=== PATIENT | female | born 1930 | race Caucasian/White ===

== ENCOUNTER 2016-08-16 11:51 | Day surgery (SDC) | payer MEDICARE ==
[~2016-08-16] VITALS: Ht 147.3 cm; Wt 64.0 kg
[2016-08-16] MEDS: LEVOTHYROXINE 0.137 MG TAB (137MCG) PO SCH (06:00)
[2016-08-16] MEDS: MAXZIDE 75/50 TABLET PO SCH (09:00)
[2016-08-16] MEDS: buPROPion **XL** TABLET 150MG (WELLBUTRIN XL) PO SCH (09:00)
[~2016-08-16 11:51] MED LIST: ASPI1TAB; ATRO1OPD OD; BRIM0.2S OD; BUPR150T3 PO; CATA0.1D TD; CLON0.5T PO; CLOTCRE3 TOP; DORZ2SOL5 OD; ERYTOIN8 OD; FLUO1OPD OD; LABE20TAB PO; LEVO137T2 PO; LIDOCAINE 2% W/EPIN INJ 20ML **PRES FREE As Ordered ONE; LIDOCAINE 4% INJ 5 ML AMP OU ONE; MAXITROL OPHTH OINT 3.5 GM As Ordered ONE; MAXITROL OPHTH OINT 3.5 GM OD ONE; MAXITROL OPHTH SUSP 5 ML As Ordered ONE; MECL12.575 PO; NORC5TAB PO; POVIDONE-IODINE 5% OPHTH PREP SOL 30ML As Ordered ONE; PRAM0.252 PO; TERA5CA PO; TRIA37.5 PO; XALA0.002 OD
[2016-08-16] MEDS ORDERED: LR 1,000 ML IV SCH ×2 (12:15→15:45)
[2016-08-16] MEDS ORDERED: fentaNYL 100 MCG/2 ML INJECTION (J3010) As Ordered ONE (13:33)
[2016-08-16] MEDS ORDERED: MIDAZOLAM INJ 2 MG/2 ML VIAL (J2250) As Ordered ONE (13:34)
[2016-08-16] MEDS ORDERED: MAXITROL OPHTH SUSP 5 ML XX ONE (14:04)
[2016-08-16] MEDS ORDERED: MAXITROL OPHTH OINT 3.5 GM XX ONE (14:04)
[2016-08-16] MEDS ORDERED: PROPOFOL 200 MG/20 ML VIAL As Ordered ONE (14:20)
[2016-08-16] MEDS ORDERED: ONDANSETRON 4MG/2ML VIAL (J2405) As Ordered ONE (14:21)
[2016-08-16] MEDS ORDERED: NEOSTIGMINE 1MG/ML 5 ML SYRINGE (J2710) As Ordered ONE (14:21)
[2016-08-16] MEDS ORDERED: GLYCOPYRROLATE INJ 0.2 MG/ML 2 ML VIAL As Ordered ONE (14:21)
[2016-08-16] MEDS ORDERED: LIDOCAINE 2% W/EPIN INJ 20ML **PRES FREE XX ONE (14:52)
[2016-08-16] MEDS ORDERED: ONDANSETRON 4MG/2ML VIAL (J2405) IV PRN (15:45)
[2016-08-16] MEDS ORDERED: NORCO, ANEXSIA 5/325MG TABLET (HYDROcodone/ACETAMINOPHEN) As Ordered ONE (16:16)
[2016-08-16] MEDS ORDERED: LABETALOL HCL 100 MG/20 ML VIAL As Ordered ONE (16:27)
[2016-08-16] MEDS ORDERED: NORCO, ANEXSIA 5/325MG TABLET (HYDROcodone/ACETAMINOPHEN) PO PRN ×2 (16:30→20:00)
[2016-08-16] MEDS: LABETALOL HCL 100 MG/20 ML VIAL IV SCH ×4 (16:34→17:05)
[2016-08-16] MEDS: fentaNYL 100 MCG/2 ML INJECTION (J3010) IV PRN ×2 (16:43→16:55)
[2016-08-16] MEDS: **hydrALAZINE** 10 MG TAB PO SCH (18:00)
--- NOTE | 2016-08-16 19:35 | CR ---
DATE OF CONSULTATION: 08/16/2016 REASON FOR CONSULTATION: Hypertension. PRIMARY CARE PROVIDER: Dr. Garcia HISTORY OF PRESENT ILLNESS: The patient is an 86-year-old female who presented to the hospital for right eye enucleation done by Dr. Coreas. Preoperative clearance was done by Dr. Garcia, outpatient. Postoperatively however, patient started to have hypertension, systolic blood pressure in the 180's. Hospitalist was consulted for hypertension. Upon my exam, patient denies any headaches, denies any chest pain, shortness of breath, denies any nausea or vomiting. Denies any weakness. Was complaining only of dizziness upon standing which per family is her baseline. REVIEW OF SYSTEMS: A 12-point review of systems was obtained, all which was negative, except for those mentioned above. PAST MEDICAL HISTORY: Significant for: 1. Hypertension. 2. Arthritis. 3. Hypothyroidism. 4. Depression. 5. Chronic kidney disease. 6. History of Meniere's disease. PAST SURGICAL HISTORY: Reviewed. ALLERGIES: PATIENT HAS MULTI-DRUG ALLERGIES INCLUDING AMLODIPINE, CARBIDOPA, CITALOPRAM, ENALAPRIL, FLUCONAZOLE, FLUOXETINE, GABAPENTIN, NSAIDs, NAPROXEN, PREGABALIN, ROPINIROLE, TRAMADOL, ROTIGOTINE. FAMILY HISTORY: Noncontributory. SOCIAL HISTORY: Patient lives at home. LABORATORY FINDINGS: None available to review at this time. PHYSICAL EXAMINATION: VITAL SIGNS: Pulse 63, respiratory rate 16, blood pressure 184/77, pulse oximetry 98% on room air. GENERAL: Patient seen and examined. She is awake, alert, and oriented times three. Status-post eye enucleation . Dressing clean, dry, and intact. CARDIAC: Bradycardiac. No murmurs appreciated. ABDOMEN: Soft, nontender, nondistended. EXTREMITIES: Trace edema bilaterally. SKIN: No obvious lesions or rashes. ASSESSMENT AND PLAN: 1. Hypertension. Patient has history of hypertension. Will continue patient's home medications. We will add Hydralazine for systolic blood pressure greater than 160, 10 mg every 6 hours as needed. Continue patient's home Labetalol, Catapres, Hytrin, Maxzide. 2. History of chronic kidney disease. We will check patient's lab in the morning. 3. Deep venous vein (DVT) prophylaxis. Sequential compression devices (SCDs) while in bed.
[2016-08-16 19:45] VITALS: BP 175/55
[2016-08-16] MEDS ORDERED: MECLIZINE 12.5 MG TAB PO PRN (20:00)
[2016-08-16 20:45] VITALS: BP 145/62
[2016-08-16] MEDS ORDERED: PRAMIPEXOLE 0.25 MG TAB PO SCH (21:00)
[2016-08-16] MEDS ORDERED: LABETALOL 200 MG TAB PO SCH (21:00)
[2016-08-16] MEDS: CEPHALEXIN 500 MG CAP PO SCH (21:31)
[2016-08-16] MEDS: LABETALOL 200 MG TAB PO SCH (21:31)
[2016-08-16] MEDS: NORCO, ANEXSIA 5/325MG TABLET (HYDROcodone/ACETAMINOPHEN) PO PRN (21:38)
[2016-08-16 21:45] VITALS: BP 150/65
[2016-08-16 22:45] VITALS: BP 155/60
[2016-08-16 23:45] VITALS: BP 150/67
[2016-08-17 00:45] VITALS: BP 155/58
[2016-08-17] MEDS: NORCO, ANEXSIA 5/325MG TABLET (HYDROcodone/ACETAMINOPHEN) PO PRN (03:56)
[2016-08-17 04:00] VITALS: BP 138/62
[2016-08-17 06:00] VITALS: BP 128/58
[2016-08-17] MEDS: **hydrALAZINE** 10 MG TAB PO SCH ×2 (06:00)
[2016-08-17] MEDS: LEVOTHYROXINE 0.137 MG TAB (137MCG) PO SCH (06:17)
[2016-08-17 06:49] LABS: BASO % 0.5 % (0.0-1.0); EOS # 0.2 K/mm3 (0.0-0.50); LARGE UNSTAINED CELL # 0.2 K/mm3 (0.0-0.4); LARGE UNSTAINED CELL % 2.6 % (0.0-4.0); LYMPH # 1.5 K/mm3 (1.5-4.5); LYMPH % 23.1 % (24.0-44.0); MEAN CORPUSCULAR HEMOGLOBIN 34.5 pg (27.0-33.0); MEAN CORPUSCULAR HGB CONC 34.5 g/dl (32.0-36.5); MONO # 0.4 K/mm3 (0.0-0.8); MONO % 5.6 % (0.0-5.0); NEUTROPHILS # 4.2 K/mm3 (1.8-7.7); NEUTROPHILS % 65.2 % (36.0-66.0); PLATELET COUNT, AUTOMATED 252 k/mm3 (150-450); RED CELL DISTRIBUTION WIDTH 13.2 % (11.5-14.5); WHITE BLOOD COUNT 6.4 K/mm3 (4.0-10.0)
[2016-08-17 07:20] LABS: ALBUMIN/GLOBULIN RATIO 0.97 (1.00-1.93); BILIRUBIN,TOTAL 0.5 MG/DL (0.2-1.0); CALCIUM LEVEL 8.8 MG/DL (8.8-10.2); CREATININE FOR GFR 2.48 MG/DL (0.55-1.02); GLOMERULAR FILTRATION RATE 19.6 (>32); POTASSIUM SERUM 3.7 MEQ/L (3.5-5.1); TOTAL PROTEIN 6.1 GM/DL (6.4-8.2)
[2016-08-17] MEDS ORDERED: TERAZOSIN 5 MG CAP PO SCH (09:00)
--- NOTE | 2016-08-17 09:29 | RO ---
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 POSTOPERATIVE DIAGNOSIS: Status post enucleation right eye with 18 mm silicone orbital implant. PROCEDURE: Enucleation right eye with 18 mm silicone implant and a small conformer in the conjunctival fornices. SURGEON: Thony Coreas DO FACS CORPORATE COMPLIANCE DIRECTOR: ANESTHESIA: INDICATION: This elderly lady was seen recently at [facility] Department of Ophthalmology by Dr. Franks. He called me and was very concerned the patient had neovascular glaucoma and there was a question of intraocular malignancy. She was in a lot of pain from the right eye and he asked to me perform an enucleation and have the specimen sent to the [facility] Department of Ophthalmology Division of Pathology for analysis. SPECIMEN REMOVED: Right globe which was sent to Dr. Segura at the [facility] Department of Ophthalmology Division of Pathology. ESTIMATED BLOOD LOSS: 5 mL. COMPLICATIONS: None. PROCEDURE IN DETAIL: After meeting with the patient and her family and discussing the various options for this blind painful eye, a decision was made to enucleate the right eye. On the day of the surgery, there was no light perception from the right eye. Informed consent was obtained and the patient was taken to the operating room. A time out was performed confirming that the eye to be removed was the right eye. The patient was placed under general anesthesia and the eye was prepped and draped in a sterile fashion. A David lid speculum was introduced in the right eye. A 360 degrees conjunctival peritomy and tenons peritomy was performed. The extraocular muscles were identified and tagged with #5-0 Vicryl and disinserted from the globe. The optic nerve was cut with enucleation scissors and the globe was sent to [facility] for analysis in the Department of Ophthalmology Division of Pathology. An 18 mm silicone implant was placed in the orbit. The extraocular muscles were tied over the implant; however, the lateral rectus was very friable in this elderly patient and was lost. A three layer closure with the extraocular muscles, tenons and the conjunctiva was performed with #5-0 Vicryl. A small conformer was placed in the conjunctival fornix. The lid speculum was removed. Maxitrol ointment was applied to the conjunctiva. A pressure patch with Elastoplast and a shield was created and the patient was successfully extubated and returned to the recovery room in excellent condition. She will stay in an observation bed given her elderly age and multiple health problems and the winter weather and her family support status. She will probably be discharged on postoperative day #1 and will followup in the office on postoperative day #3 for removal of the patch and will take Keflex 500 mg by mouth twice a day in addition to her regular home medicines. She has been prescribed oxycodone for pain control.
[2016-08-17 10:19] VITALS: BP 155/65
[2016-08-17] MEDS: CEPHALEXIN 500 MG CAP PO SCH (10:19)
[2016-08-17] MEDS: MAXZIDE 75/50 TABLET PO SCH (10:19)
[2016-08-17] MEDS: LABETALOL 200 MG TAB PO SCH (10:20)
[2016-08-17] MEDS: buPROPion **XL** TABLET 150MG (WELLBUTRIN XL) PO SCH (10:20)
[2016-08-17] MEDS ORDERED: KEFL500C7 PO (11:19)
[2016-08-22] MEDS ORDERED: cloNIDine HCL 0.1 MG/24 HR PATCH TOP SCH (21:00)
== END 2016-08-17 12:30 | disposition home or self-care (01) ==
LOC: M SDC 11:51 → M MS5PR 17:48 → M SDC 08-17 12:30
PROVIDERS: ATTEND Ophthalmology
DX: H54.41 Blindness, right eye, normal vision left eye (principal); H57.11 Ocular pain, right eye; I12.9 Hypertensive chronic kidney disease with stage 1 through stage 4 chronic kidney disease, or unspecified chronic kidney disease; R60.0 Localized edema; R00.1 Bradycardia, unspecified; E03.9 Hypothyroidism, unspecified; K59.00 Constipation, unspecified; R29.898 Other symptoms and signs involving the musculoskeletal system; G89.29 Other chronic pain; M15.0 Primary generalized (osteo)arthritis; M47.816 Spondylosis without myelopathy or radiculopathy, lumbar region; G25.81 Restless legs syndrome; N18.3 Chronic kidney disease, stage 3 (moderate); G47.9 Sleep disorder, unspecified; H81.09 Meniere's disease, unspecified ear; Z88.1 Allergy status to other antibiotic agents; Z88.6 Allergy status to analgesic agent; Z88.8 Allergy status to other drugs, medicaments and biological substances; Z79.899 Other long term (current) drug therapy; Z79.82 Long term (current) use of aspirin; Z85.3 Personal history of malignant neoplasm of breast; Z92.3 Personal history of irradiation; Z90.710 Acquired absence of both cervix and uterus; Z78.0 Asymptomatic menopausal state
CPT/HCPCS: 36415; 65103; 80053; 85025; 88300; 96374; 96375; J2250; J2405; J2710; J3010

== ENCOUNTER → 2016-11-23 | Outpatient (REF) | payer MEDICARE ==
[~2016-11-23] MED LIST changes: +KEFL500C7 PO; -LIDOCAINE 2% W/EPIN INJ 20ML **PRES FREE As Ordered ONE; -LIDOCAINE 4% INJ 5 ML AMP OU ONE; -MAXITROL OPHTH OINT 3.5 GM As Ordered ONE; -MAXITROL OPHTH OINT 3.5 GM OD ONE; -MAXITROL OPHTH SUSP 5 ML As Ordered ONE; +NORC1TAB4 PO; -NORC5TAB PO; -POVIDONE-IODINE 5% OPHTH PREP SOL 30ML As Ordered ONE
== END ==
LOC: M LAB REF 16:20
PROVIDERS: ATTEND Ophthalmology
DX: H00.11 Chalazion right upper eyelid (principal)

== ENCOUNTER → 2016-12-14 | Outpatient (REF) | payer MEDICARE | LOC: M LAB REF 16:06 | PROVIDERS: ATTEND Ophthalmology | DX: H00.011 Hordeolum externum right upper eyelid (principal) ==